=== PATIENT | male | born 1960 | race Caucasian/White ===

== ENCOUNTER 2021-10-26 16:08 | Emergency (ER) | payer OTHER ==
[~2021-10-26] VITALS: Ht 175.3 cm; Wt 70.8 kg
[2021-10-26] MEDS ORDERED: FLUOXETINE HCL40 MG PO (16:24)
[2021-10-26] MEDS ORDERED: CLONAZEPAM1 MG PO (16:24)
[2021-10-26] MEDS ORDERED: VALSARTAN80 MG PO (16:24)
[2021-10-26] MEDS ORDERED: MEDI-MECLIZINE25 MG PO (19:15)
== END 2021-10-26 20:06 | disposition home or self-care (01) ==
LOC: ER 16:08
DX: R42 Dizziness and giddiness (principal); R51.9 Headache, unspecified